=== PATIENT | female | born 1985 | race Two or more races ===

== ENCOUNTER 2022-09-20 17:30 | Emergency (ER) | payer OTHER ==
[~2022-09-20] VITALS: Ht 172.7 cm; Wt 83.9 kg
[2022-09-20] MEDS ORDERED: SYNTHROID200 MCG PO (17:39)
[2022-09-20] MEDS ORDERED: INTESTINEX680 M1 PO (19:20)
[2022-09-20] MEDS ORDERED: PEPCID AC20 MG PO (19:20)
[2022-09-20] MEDS ORDERED: DICY20TA PO (19:20)
== END 2022-09-20 20:24 | disposition home or self-care (01) ==
LOC: ER 17:30
DX: K52.9 Noninfective gastroenteritis and colitis, unspecified (principal); E03.8 Other specified hypothyroidism

== ENCOUNTER 2024-05-14 12:38 | Emergency (ER) | payer OTHER ==
[~2024-05-14] VITALS: Ht 172.7 cm; Wt 85.7 kg
[~2024-05-14 12:38] MED LIST: DICY20TA PO; INTESTINEX680 M1 PO; PEPCID AC20 MG PO; SYNTHROID200 MCG PO
[2024-05-14 17:49] LABS: HEMATOCRIT 29.4 % (36.0-45.00); MEAN CELL VOLUME 75.6 fL (80.00-100.00); MEAN CORPUSCULAR HGB CONC 31.5 g/dl (32.0-36.0); PLATELET COUNT 260 K/uL (150-450); RED BLOOD COUNT 3.89 M/uL (4.00-6.00)
[2024-05-14 17:52] LABS: HEMOGLOBIN 9.3 g/dL (12.0-15.00); MEAN CORPUSCULAR HEMOGLOBIN 23.9 pg (27.00-32.0); RED CELL DISTRIBUTION WIDTH 20.9 % (11.5-14.5)
[2024-05-14 18:03] LABS: PH,URINE 5.5 (5.0-8.0); URINE APPEARANCE Clear; URINE BILIRRUBIN Negative (NEGATIVE); URINE BLOOD Negative; URINE COLOR Yellow; URINE GLUCOSE Negative (NEGATIVE); URINE KETONE Negative (NEGATIVE); URINE LEUKOCYTE Small; URINE NITRATE Negative; URINE PROTEIN Negative (NEGATIVE); URINE UROBILINOGEN 0.2 E.U./dl
[2024-05-14 18:09] LABS: ALBUMIN 3.7 gm/dL (3.4-5.0); BILIRUBIN TOTAL 1.26 mg/dL (0.3-1.2); CALCIUM 8.8 mg/dL (8.5-10.1); CREATININE SERUM 0.79 mg/dL (0.55-1.02); GFR 82.35; POTASSIUM 4.01 mEq/L (3.5-5.1); TOTAL PROTEIN 7.7 gm/dL (6.4-8.2)
[2024-05-14 18:09] LABS: URINE BACTERIA 1947.3 uL (0.0-1933); URINE EPITHELIAL CELLS 73.1 uL (0.0-38.8); URINE WBC 30.3 uL (0.0-23.2)
== END 2024-05-14 19:46 | disposition home or self-care (01) ==
LOC: ER 12:41
PROVIDERS: General Practice
DX: R53.81 Other malaise (principal); R50.9 Fever, unspecified; Z20.822 Contact with and (suspected) exposure to COVID-19